=== PATIENT | male | born 1990 | race American Indian/Alaskan Native ===

== ENCOUNTER 2017-06-21 10:10 | Emergency (ER) | payer OTHER ==
[2017-06-21] MEDS ORDERED: MOTRIN PO ONE (11:10)
[2017-06-21] MEDS ORDERED: FLEXERIL PO ONE (11:21)
--- NOTE | 2017-06-21 11:50 | XRay Report ---
RIGHT SHOULDER, 3 VIEWS: HISTORY: right shoulder pain. Normal bone mineralization. No acute osseous injury or joint pathology is detected. The soft tissues are unremarkable. IMPRESSION: Right shoulder within normal limits.
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
[2017-06-21 12:12] VITALS: BP 128/82
== END 2017-06-21 12:12 | disposition home or self-care (01) ==
LOC: ED 10:10
DX: S46.911A Strain of unspecified muscle, fascia and tendon at shoulder and upper arm level, right arm, initial encounter (principal); S13.4XXA Sprain of ligaments of cervical spine, initial encounter; V89.2XXA Person injured in unspecified motor-vehicle accident, traffic, initial encounter; Y93.89 Activity, other specified; Y92.89 Other specified places as the place of occurrence of the external cause; Y99.8 Other external cause status
CPT/HCPCS: 99284